=== PATIENT | female | born 1995 | race American Indian/Alaskan Native ===

== ENCOUNTER 2018-07-25 15:30 | Emergency (ER) | payer OTHER, MEDICAID ==
[2018-07-25 15:52] VITALS: BP 123/68
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
[2018-07-25] MEDS ORDERED: IBUPROFEN PO ONE (17:16)
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
== END 2018-07-25 19:40 | disposition home or self-care (01) ==
LOC: ED 15:30
DX: S01.112A Laceration without foreign body of left eyelid and periocular area, initial encounter (principal); W22.8XXA Striking against or struck by other objects, initial encounter; Y93.89 Activity, other specified; Y92.89 Other specified places as the place of occurrence of the external cause; Y99.8 Other external cause status
CPT/HCPCS: 99283